=== PATIENT | female | born 2000 | race Two or more races ===

== ENCOUNTER 2018-06-08 20:01 | Emergency (ER) | payer OTHER ==
[~2018-06-08] VITALS: Ht 170.2 cm; Wt 60.3 kg
[2018-06-08 20:21] VITALS: BP 114/64
== END 2018-06-09 04:53 | disposition home or self-care (01) ==
LOC: ER 20:01
DX: M54.2 Cervicalgia (principal); M62.838 Other muscle spasm; M25.511 Pain in right shoulder; R51 Headache; W19.XXXA Unspecified fall, initial encounter; Y93.89 Activity, other specified; Y92.69 Other specified industrial and construction area as the place of occurrence of the external cause; Y99.8 Other external cause status
CPT/HCPCS: 70450; 72125; 73030; 81025